=== PATIENT | male | born 2000 | race African-American/Black ===

== ENCOUNTER 2022-05-04 01:29 | Emergency (ER) | payer SELFPAY ==
[~2022-05-04] VITALS: Ht 167.6 cm; Wt 61.0 kg
[2022-05-04] MEDS ORDERED: ACETAMINOPHEN 325MG TABLET PO ONE (02:30)
[2022-05-04] MEDS ORDERED: IBUPROFEN 400MG TABLET PO ONE (02:30)
[2022-05-04] MEDS ORDERED: LIDOCAINE HCL 1% 20ML VIAL (Pyxis) INJ INFIL ONE (02:30)
[2022-05-04 02:36] VITALS: BP 114/72
[2022-05-04] MEDS ORDERED: IBUP-2028 MT (03:29)
[2022-05-04] MEDS ORDERED: TOPUD PO (03:29)
== END 2022-05-04 03:43 | disposition home or self-care (01) ==
LOC: ER 01:29
DX: S01.311A Laceration without foreign body of right ear, initial encounter (principal); S93.492A Sprain of other ligament of left ankle, initial encounter; F17.210 Nicotine dependence, cigarettes, uncomplicated; W01.0XXA Fall on same level from slipping, tripping and stumbling without subsequent striking against object, initial encounter; Y93.89 Activity, other specified; Y92.018 Other place in single-family (private) house as the place of occurrence of the external cause
CPT/HCPCS: 12011; 73610; 99283; Z7610